=== PATIENT | female | born 1975 ===

== ENCOUNTER 2016-11-05 11:43 | Emergency (ER) | payer OTHER ==
[2016-11-05 12:09] VITALS: BP 109/69; PULSE 83; RESP 18; TEMP 98.4; O2SAT 100
--- NOTE | 2016-11-05 12:19 | ED PDOC ---
Lower Extremity Pain/Injury Time Seen by Provider: 11/05/16 12:10 Chief Complaint (Nursing): Lower Extremity Problem/Injury Chief Complaint (Provider): Left foot pain History Per: Patient History/Exam Limitations: no limitations Onset/Duration Of Symptoms: Hrs (1) Current Symptoms Are (Timing): Still Present Severity: Moderate Additional Complaint(s): Med Frank is a 41 y/o female, with no past medical history, presenting to the ER on 11/05/2016 with complaints of left foot pain x1 hour after a fall. Patient states she is unable to bear weight on her left foot. She did not take any pain medications prior to arrival. Patient denies any head injuries or lost of consciousness after the fall. - Ankle/Foot Description Of Injury: Fell Currently Unable To: Bear Weight Past Medical History Reviewed: Historical Data, Nursing Documentation, Vital Signs Vital Signs: Last Vital Signs Temp 98.4 F 11/05/16 12:07 Pulse 83 11/05/16 12:07 Resp 18 11/05/16 12:07 BP 109/69 11/05/16 12:07 Pulse Ox 100 11/05/16 12:07 - Medical History PMH: No Chronic Diseases - Surgical History Surgical History: (x1) - Family History Family History: States: Unknown Family Hx - Social History Current smoker - smoking cessation education provided: No Alcohol: None Drugs: Denies - Home Medications Home Medications: Ambulatory Orders Medication Instructions Recorded Ibuprofen [Motrin] 600 mg PO Q6 PRN #15 tab 11/05/16 - Allergies Allergies/Adverse Reactions: Allergies Allergy/AdvReac Type Severity Reaction Status Date / Time No Known Allergies Allergy Unverified 05/07/14 15:31 Review of Systems ROS Statement: Except As Marked, All Systems Reviewed And Found Negative Cardiovascular: Negative for: Light Headedness Musculoskeletal: Positive for: Foot Pain ((+) left foot) Neurological: Negative for: Weakness, Numbness, Headache Physical Exam - Reviewed Nursing Documentation Reviewed: Yes Vital Signs Reviewed: Yes - Physical Exam Appears: Positive for: Non-toxic, No Acute Distress Skin: Positive for: Normal Color Eye Exam: Positive for: Normal appearance Extremity: Positive for: Normal ROM, Tenderness ((+) TTP to dorsolateral aspect of left foot; (-) tenderness to left ankle ), Capillary Refill (normal ), Swelling ((+) dorsolateral aspect of left foot ), Other (normal distal sensation ). Negative for: Deformity Neurologic/Psych: Positive for: Alert, Oriented. Negative for: Motor/Sensory Deficits - ECG O2 Sat by Pulse Oximetry: 100 Pulse Ox Interpretation: Normal - Other Rad Left foot x-ray X-Ray: Interpreted by Me, Viewed By Me X-Ray Interpretation: ? avulsion seen dorsally on lateral view, CT ordered CT left foot X-Ray: Read By Radiologist X-Ray Interpretation: see below Medical Decision Making Medical Decision Makin:10 Initial Impression- Foot pain s/p fall; R/o fracture Initial Plan- * XR Left foot * Ibuprofen 600 mg PO * Re-evaluate 13:04 Pt will be evaluated by podiatry resident, Dr. Young 13:21 CT Ext Lower w/o contrast has been ordered as per podiatry resident CT: FINDINGS: Bones/joints: There is a thin osseus fragment anterior to the talus, dorsal to the talonavicular joint. Nondisplaced fracture of the distal anterolateral superior calcaneus. There are also small displaced osseous fragments lateral to the calcaneus, with surrounding soft tissue swelling. Bone island in the calcaneus and talus. Soft tissues: Soft tissue swelling over the anterior and lateral ankle. IMPRESSION: 1. There is a thin osseus fragment anterior to the talus, dorsal to the talonavicular joint. 2. Nondisplaced fracture of the distal anterolateral superior calcaneus. There are also small displaced osseous fragments lateral to the calcaneus, with surrounding soft tissue swelling Splint applied by resident, crutches given. Rx motrin given. Advised ice, rest and elevated and follow up in [address] Moore. Documented by Chemo Andino, acting as a scribe for Radha Fabian PA-C All medical record entries made by the Scribe were at my direction and personally dictated by me. I have reviewed the chart and agree that the record accurately reflects my personal performance of the history, physical exam, medical decision making, and the department course for this patient. I have also personally directed, reviewed, and agree with the discharge instructions and disposition. Disposition - Clinical Impression Clinical Impression: Calcaneus fracture - Patient ED Disposition Is Patient to be Admitted: No Counseled Patient/Family Regarding: Studies Performed, Diagnosis, Need For Followup, Rx Given - Disposition Referrals: Ellyn Moore DPM [Staff Provider] - Disposition: Routine/Home Disposition Time: 15:40 Condition: STABLE Additional Instructions: Keep splint on at all times, do not remove splint. Do not get splint wet. Ice and elevate affected area. Take prescription meds as directed as needed for pain. Follow up next week with Dr. Moore's office, call Monday to make an appointment. Prescriptions: Ibuprofen [Motrin] 600 mg PO Q6 PRN #15 tab PRN Reason: Pain, Moderate (4-7) Instructions: Calcaneal Fracture (ED), Crutch Instructions (ED), Splint Care ( ED)
--- NOTE | 2016-11-05 15:40 | CP.PCM.CON ---
History of Present Illness - History of Present Illness History of Present Illness: PODIATRY CONSULT NOTE 41 y/o female with no past medical history seen in ER with complaints of left foot pain 2 hour after a fall. Patient states she is unable to fully bear weight on her left foot, which prompted her to seek medical attention as swelling began to present to the area. She did not take any pain medications prior to arrival. Patient denies any head injuries or lost of consciousness after the fall, which she describes as a misstep. Pain is graded 5/10 when ambulating at peak, and remains localized to outer left foot. Pain is well controlled with analgesic she has received while in ED> . Past Patient History - Past Social History Alcohol: None Drugs: Denies - PSYCHIATRIC Hx Substance Use: No Meds Home Medications: Home Medication List Medication Instructions Recorded Confirmed Type Ibuprofen [Motrin] 600 mg PO Q6 PRN #15 tab 11/05/16 Rx Allergies/Adverse Reactions: Allergies Allergy/AdvReac Type Severity Reaction Status Date / Time No Known Allergies Allergy Unverified 05/07/14 15:31 Physical Exam - Constitutional Appears: Well, Non-toxic, No Acute Distress - Extremities Exam Additional comments: Left foot focused. VASC: DP and PT pulses are palpable, graded 2/4. Negative calf tenderness on compression. Digits are well perfused. Moderate non-pitting edema noted at level of dorso-lateral midfoot joint, with accompanying mild callor. Temperature runs warm to cool proximal to distal. DERM: Minor ecchymosis noted to dorso-lateral midfoot joint at this time. No open wounds, lesions, or macerations noted. No hyper-keratotic lesion. Nails are normotrophic and well manicured. NEURO: Protective sensation and epicritic sensation grossly intact. MUSK: Tender limited midfoot inversion and eversion ROM, limitation moderate secondary to guarding and swelling. Tenderness on palpation along dorsal- lateral calcaneal cuboid joint. Pedal muscle strength is graded 5/5 in all 4 major pedal muscle groups. No gross deformities noted. - Neurological Exam Neurological exam: Alert, Oriented x3 - Psychiatric Exam Psychiatric exam: Normal Affect, Normal Mood Results - Vital Signs Recent Vital Signs: Last Vital Signs Temp 98.4 F 11/05/16 12:07 Pulse 83 11/05/16 12:07 Resp 18 11/05/16 12:07 BP 109/69 11/05/16 12:07 Pulse Ox 100 11/05/16 14:00 Assessment & Plan - Assessment and Plan (Free Text) Assessment: 41 y/o female with left foot closed non-displaced anterior process of the calcaneus fracture, intra-articular. Plan: Pt seen and evaluated. Chart, labs, and vitals reviewed. Discussed in detail with attending, Dr. Moore, who endorsed the following plan. X-ray show- midfoot fracture in overlapping region of cuboid, calcaneous, and naviular. Due to superimposition, higher imaging study required to assess origin of fracture. CT scan results show- non-displaced, intra-articular anterior process calcaneous fracture, non-displaced. Applied Baltazar Compression & Posterior splint to left foot. Pt to remain non- weightbearing to left leg with axillary crutches. RICE therapy. Recommending Ibuprofen 600mg TID prn pain Follow-up in Dr. Moore's office within 10 days. - Date & Time Date: 11/05/16 Time: 15:05
--- NOTE | 2016-11-05 17:34 | RAD ---
PROCEDURE: Left foot radiographs 11/05/2016 at 12:20 6 hours. HISTORY: Trauma. COMPARISON: This study was read in conjunction with the CT scan of the left ankle/ foot performed slightly later at approximately 13.59 hours FINDINGS: BONES: Nondisplaced fracture of the distal anterolateral superior margin of the calcaneus seen on prior CT scan is not appreciated on this study. . Note is made however of a very thin osseous fragment at anterior and superior to the talus dorsal to the talonavicular joint better seen on subsequent CT scan. This may represent a tiny avulsion fracture as well. . Mild overlying soft tissue swelling as mentioned above Please refer to subsequent CT scan of the left foot and ankle and corresponding report for additional details. . JOINTS: Joint spaces appear preserved so far as can be seen. SOFT TISSUES: As mentioned above, there is mild dorsal soft tissue swelling at the level of the superior margin of the talus and at talonavicular joint OTHER FINDINGS: None. IMPRESSION: Nondisplaced fracture of the distal anterolateral superior margin of the calcaneus seen on prior CT scan is not appreciated on this study. . Note is made however of a very thin osseous fragment at anterior and superior to the talus dorsal to the talonavicular joint better seen on subsequent CT scan. This may represent a tiny avulsion fracture as well. . Mild overlying soft tissue swelling as mentioned above Please refer to subsequent CT scan of the left foot and ankle and corresponding report for additional details. .
--- NOTE | 2016-11-06 18:37 | CT ---
PROCEDURE: CT scan of the left ankle/foot dated 11/05/2016 COMPARISON: Comparison made with plain film radiographs obtained earlier same day. TECHNIQUE: Contiguous axial images of the left ankle and foot were obtained. Coronal and sagittal reformats were generated. This CT exam was performed using one or more of the following dose reduction techniques: Automated exposure control, adjustment of the mA and/or kV according to patient size, and/or use of iterative reconstruction technique. Radiation dose. Total DLP = 216.01 mGy-cm. FINDINGS: Current study and reveals a relatively nondisplaced fracture of the distal anterolateral superior margin of the calcaneus. Small displaced osseous fragments lateral to the calcaneus with surrounding soft tissue swelling. In addition, there is a thin osseous fragments seen within the dorsal soft tissues adjacent to to the state anterior superior margin of the talus at dorsal to the talonavicular joint. This could represent a tiny avulsion fracture with overlying mild dorsal soft tissue swelling. Incidental note made of small sclerotic density within the superior margin of the calcaneus likely representing an incidental bone island or osteoma. Impression: Nondisplaced fracture distal anterolateral superior margin of the calcaneus with small displaced osseous fragments adjacent to the lateral aspect of the calcaneus. There is also surrounding soft tissue swelling. There is another tiny osseous fragment seen within the dorsal soft tissues adjacent to the anterior superior margin of the talus at the level of the talonavicular joint that could represent tiny avulsion fracture with mild overlying dorsal soft tissue swelling. . Consider followup MRI for further evaluation if necessary.
== END 2016-11-05 16:00 | disposition home or self-care (01) ==
LOC: H.ER 11:43
DX: S92.002A Unspecified fracture of left calcaneus, initial encounter for closed fracture (principal); W19.XXXA Unspecified fall, initial encounter